=== PATIENT | female | born 1970 | race Two or more races ===

== ENCOUNTER 2017-02-13 10:21 | Emergency (ER) | payer SELFPAY ==
[~2017-02-13 10:21] MED LIST: ANTIBIOTIC; AZITHROMYCIN250 MG PO; BACTRIM DS TABL1 TA1 PO; BENADRYL25 MG PO; BIRTH CONTROL PILL PO; CIPRO PO; E-MYCIN250 MG PO; ELIMITE60 GM TOP; FLAGYL PO; FLEXERIL10 MG PO; HYCODAN60 ML 5MG/ PO; IBUPROFEN600 MG PO; IBUPROFEN800 MG PO; LORTAB 5/500 TA1 TA1 PO; MEDROL4 MG/DOSE- PO; NAPROXEN PO; PAIN MED; PREDNISONE PO; PRENATAL VITAMI1 TA3 PO; PROMETHAZINE-D240 ML PO; PYRIDIUM PO; ROBITUSSIN100 MG/51 PO; TESSALON200 MG PO; ULTRAM; VOLTAREN75 MG PO; Z-PAK; ZANTAC150 M1 PO; ZITHROMAX1 G/PKT PO; ZOFRAN; ZOVIRAX800 MG PO
== END 2017-02-13 11:53 | disposition home or self-care (01) ==
LOC: CED 10:21 → CFTX 10:21 → CED 11:12 → CFTX 11:12
DX: M25.511 Pain in right shoulder (principal); J06.9 Acute upper respiratory infection, unspecified; Z90.49 Acquired absence of other specified parts of digestive tract; Z88.0 Allergy status to penicillin
CPT/HCPCS: 87651; 99283

== ENCOUNTER 2017-03-28 16:35 | Emergency (ER) | payer SELFPAY | END 2017-03-28 19:00 | disposition home or self-care (01) | LOC: CED 16:35 | DX: H10.022 Other mucopurulent conjunctivitis, left eye (principal) | CPT/HCPCS: 99283 ==